=== PATIENT | male | born 1945 | race Caucasian/White ===

== ENCOUNTER 2017-05-06 13:19 | Emergency (ER) | payer OTHER ==
[~2017-05-06] VITALS: Ht 185.4 cm; Wt 153.0 kg
[~2017-05-06 13:19] MED LIST: BUPROPION HCL100 M1 PO; ESCITALOPRAM OX10 MG PO; FUROSEMIDE40 MG PO; HUMALOG100 UNIT/1 SC; IRON325 M1 PO; JANTOVEN10 MG PO; JANTOVEN2 MG PO; JANTOVEN6 MG PO; LANTUS 10100 UNITS/ SC; METFORMIN HCL1000 MG PO; METOLAZONE2.5 MG PO; METOPROLOL TART25 MG PO; NOVOLOG 10100 UNITS/ SC; QUINAPRIL HCL5 MG PO; SIMVASTATIN20 MG PO; TAMSULOSIN HCL0.4 MG PO
[2017-05-06 14:08] LABS: HEMATOCRIT 51.7 % (38.0-50.0); MCH 30.4 PG (29.0-34.0); MCHC 32.9 G/DL (30.0-36.0); MCV 92.3 FL (86-99); MEAN PLAT.VOLUME 10.1 uM^3 (9.0-12.4); PLATELET COUNT 185 K/uL (156-360); RBC DIS.WIDTH-CV 14.7 % (11.8-14.6); RBC DIS.WIDTH-SD 49.9 % (39-53); WHITE BLOOD COUNT 7.8 K/uL (4.1-10.2)
[2017-05-06 14:19] LABS: CHLORIDE 108 mEq/L (99-109); POTASSIUM 4.8 mEq/L (3.7-5.4); SODIUM 141 mEq/L (136-147)
[2017-05-06 14:21] LABS: GLUCOSE 124 mg/dL (70-99)
[2017-05-06 14:22] LABS: ANION GAP 11 MEQ/L (2-14)
[2017-05-06 14:25] LABS: GFR ESTIMATE (CALCULATED) > 59 mL/min/
[2017-05-06 14:26] LABS: UREA NITROGEN (BUN) 24 mg/dL (9-23)
[2017-05-06 14:48] LABS: ALKALINE PHOSPHATASE 126 IU/L (3-129)
[2017-05-06 14:51] LABS: DIRECT BILIRUBIN 0.4 mg/dL (0.0-0.3)
[2017-05-06 15:12] LABS: ADD MIUA? YES; BILIRUBIN NEGATIVE; BLOOD SMALL; COLOR YELLOW ((YELLOW)); GLUCOSE (STRIP) NEGATIVE; KETONES NEGATIVE; LEUKOCYTES NEGATIVE; NITRITE NEGATIVE; PROTEIN (STRIP) NEGATIVE; SPECIFIC GRAVITY 1.012 (1.000-1.030); UROBILINOGEN 0.2 MG/DL (0.2-1.0)
[2017-05-06 15:17] LABS: BACTERIA RARE /HPF; EPITHELIAL CELLS RARE /HPF; MUCUS TRACE /LPF; UCUL ADDED? NO; WHITE BLOOD CELLS 0-5 /HPF (0-5)
[2017-05-06 18:19] VITALS: BP 128/98
== END 2017-05-06 18:20 | disposition home or self-care (01) ==
LOC: EME 13:19
DX: R19.7 Diarrhea, unspecified (principal); K57.30 Diverticulosis of large intestine without perforation or abscess without bleeding; I10 Essential (primary) hypertension; E78.5 Hyperlipidemia, unspecified; F32.9 Major depressive disorder, single episode, unspecified; E11.9 Type 2 diabetes mellitus without complications; Z79.4 Long term (current) use of insulin; Z88.8 Allergy status to other drugs, medicaments and biological substances
CPT/HCPCS: 74177; 80048; 80076; 81003; 85027; 87177; 87493; 87506; 99281; 99283; J7030

== ENCOUNTER 2017-10-28 17:16 | Inpatient (IN) | payer OTHER ==
[~2017-10-28] VITALS: Ht 188 cm; Wt 157.3 kg
[2017-10-28 17:53] LABS: HEMATOCRIT 44.9 % (38.0-50.0); HEMOGLOBIN 14.8 G/DL (12.5-16.6); MCH 31.7 PG (29.0-34.0); MCV 96.1 FL (86-99); PLATELET COUNT 162 K/uL (156-360); RBC DIS.WIDTH-CV 15.2 % (11.8-14.6); RBC DIS.WIDTH-SD 53.5 % (39-53); RED BLOOD COUNT 4.67 M/uL (4.00-5.50)
[2017-10-28 18:05] LABS: CHLORIDE 107 mEq/L (99-109); POTASSIUM 5.1 mEq/L (3.7-5.4); SODIUM 138 mEq/L (136-147)
[2017-10-28 18:07] LABS: GLUCOSE 208 mg/dL (70-99)
[2017-10-28 18:10] LABS: CREATININE 1.2 mg/dL (0.6-1.3); GFR ESTIMATE (CALCULATED) > 59 mL/min/ (58.99-99999)
[2017-10-28 18:11] LABS: UREA NITROGEN (BUN) 22 mg/dL (9-23)
[2017-10-28 18:16] LABS: TROP-I INTERPRETATION NEGATIVE; TROPONIN-I 0.03 ng/mL (0.0-0.30)
[2017-10-28] MEDS ORDERED: LEXAPRO10 MG PO (20:57)
[2017-10-28] MEDS ORDERED: ELIQUIS5 MG PO (20:57)
[2017-10-28] MEDS ORDERED: NOVOLIN,HU100 UNITS/ SC (20:57)
[2017-10-28] MEDS ORDERED: WELLBUTRIN XL300 MG PO (20:59)
[2017-10-28] MEDS ORDERED: LOPRESSOR25 MG PO (20:59)
[2017-10-28] MEDS ORDERED: ZOCOR20 MG PO (20:59)
[2017-10-28] MEDS ORDERED: FUROSEMIDE20 MG PO (20:59)
[2017-10-28] MEDS ORDERED: OTHER MEDS (21:00)
[2017-10-29 04:40] VITALS: BP 136/74
[2017-10-29 06:08] LABS: HEMATOCRIT 45.2 % (38.0-50.0); HEMOGLOBIN 14.4 G/DL (12.5-16.6); MCH 30.4 PG (29.0-34.0); MCHC 31.9 G/DL (30.0-36.0); MCV 95.6 FL (86-99); PLATELET COUNT 171 K/uL (156-360); RBC DIS.WIDTH-CV 14.8 % (11.8-14.6); RBC DIS.WIDTH-SD 52.3 % (39-53); RED BLOOD COUNT 4.73 M/uL (4.00-5.50); WHITE BLOOD COUNT 9.2 K/uL (4.1-10.2)
[2017-10-29 06:38] LABS: CHLORIDE 105 MEQ/L (99-109); CREATININE 1.2 MG/DL (0.6-1.3); GFR ESTIMATE (CALCULATED) > 59 mL/min/ (58.99-99999); GLUCOSE 237 mg/dL (70-99); POTASSIUM 5.2 MEQ/L (3.7-5.4); SODIUM 136 MEQ/L (136-147); UREA NITROGEN (BUN) 23 mg/dL (9-23)
[2017-10-29 07:53] VITALS: BP 133/65
[2017-10-29 11:56] VITALS: BP 145/70
[2017-10-29 17:08] VITALS: BP 133/63
[2017-10-29 20:00] VITALS: BP 160/76
[2017-10-30] VITALS: BP 122/63
[2017-10-30 04:00] VITALS: BP 116/61
[2017-10-30 06:25] LABS: HEMATOCRIT 45.2 % (38.0-50.0); HEMOGLOBIN 14.6 G/DL (12.5-16.6); MCH 30.7 PG (29.0-34.0); MCHC 32.3 G/DL (30.0-36.0); MCV 95.2 FL (86-99); PLATELET COUNT 194 K/uL (156-360); RBC DIS.WIDTH-CV 15.1 % (11.8-14.6); RBC DIS.WIDTH-SD 53.2 % (39-53); RED BLOOD COUNT 4.75 M/uL (4.00-5.50); WHITE BLOOD COUNT 12.7 K/uL (4.1-10.2)
[2017-10-30 06:57] LABS: CHLORIDE 105 MEQ/L (99-109); CREATININE 1.1 MG/DL (0.6-1.3); GFR ESTIMATE (CALCULATED) > 59 mL/min/ (58.99-99999); GLUCOSE 48 mg/dL (70-99); POTASSIUM 4.4 MEQ/L (3.7-5.4); SODIUM 140 MEQ/L (136-147); UREA NITROGEN (BUN) 25 mg/dL (9-23)
[2017-10-30 07:11] VITALS: BP 113/56
[2017-10-30 10:51] LABS: HEMOGLOBIN A1c (GLYCOHEMOGLOB) 9.2 % (Below 5.7)
[2017-10-30 16:33] VITALS: BP 126/71
[2017-10-30 16:49] LABS: BASE EXCESS 1.2 mEq/L (-3 to +3); BICARBONATE 25.1 mEq/L (22-26); CARBOXY HGB 2.5 % (0-5); METHEMOGLOBIN 1.6 % (0-1.5); PCO2 37 mm Hg (35-45); PO2 53 mm Hg (80-100); pH 7.44 (7.35-7.45)
[2017-10-30 16:54] LABS: COMMENTS - BLOOD GASES A+C+; DEVICE RA; SITE RR; TOTAL RESP RATE 20 resp/min
== END 2017-10-30 18:45 | disposition home or self-care (01) | DRG 189 ==
LOC: EME 17:16 → 5SOUTH 21:04 → EDOF 21:04 → ENRESERV 21:07 → EDOF 10-29 00:15 → 5SOUTH 10-29 00:19 → ENPENDDIS 10-30 16:21 → 5SOUTH 10-30 18:45
PROVIDERS: Emergency Medicine; Internal Medicine; Internal Medicine Pulmonary Disease; Physician Assistant Medical
DX: J96.01 Acute respiratory failure with hypoxia (principal); J44.1 Chronic obstructive pulmonary disease with (acute) exacerbation; E66.2 Morbid (severe) obesity with alveolar hypoventilation; Z68.41 Body mass index [BMI] 40.0-44.9, adult; E11.51 Type 2 diabetes mellitus with diabetic peripheral angiopathy without gangrene; I10 Essential (primary) hypertension; I27.20 Pulmonary hypertension, unspecified; I48.2 Chronic atrial fibrillation; I87.2 Venous insufficiency (chronic) (peripheral); L30.9 Dermatitis, unspecified; I87.8 Other specified disorders of veins; N13.9 Obstructive and reflux uropathy, unspecified; Z79.4 Long term (current) use of insulin; Z87.891 Personal history of nicotine dependence; Z90.79 Acquired absence of other genital organ(s); Z79.01 Long term (current) use of anticoagulants; Z80.3 Family history of malignant neoplasm of breast; Z81.8 Family history of other mental and behavioral disorders; Z82.49 Family history of ischemic heart disease and other diseases of the circulatory system; Z83.3 Family history of diabetes mellitus
CPT/HCPCS: 36600; 71046; 71275; 80048; 82803; 82948; 83036; 83880; 84484; 85027; 93005; 93306; 93925; 93970; 94640; 94640 76; 94799; 99202; 99281; 99285; J1815; J2920; J7512

== ENCOUNTER 2017-11-18 19:27 | Emergency (ER) | payer OTHER ==
[~2017-11-18] VITALS: Ht 180.3 cm; Wt 148.7 kg
[~2017-11-18 19:27] MED LIST changes: +ELIQUIS5 MG PO; +FUROSEMIDE20 MG PO; +LEXAPRO10 MG PO; +LOPRESSOR25 MG PO; +NOVOLIN,HU100 UNITS/ SC; +OTHER MEDS; +WELLBUTRIN XL300 MG PO; +ZOCOR20 MG PO
[2017-11-19 00:08] VITALS: BP 165/72
== END 2017-11-19 00:13 | disposition home or self-care (01) ==
LOC: EME → EDBD 19:27 → EME 19:27
DX: M54.5 Low back pain (principal); M54.6 Pain in thoracic spine; M41.9 Scoliosis, unspecified; Z91.81 History of falling; I48.91 Unspecified atrial fibrillation; Z79.01 Long term (current) use of anticoagulants; I10 Essential (primary) hypertension; E78.5 Hyperlipidemia, unspecified; E11.9 Type 2 diabetes mellitus without complications; Z79.4 Long term (current) use of insulin; F32.9 Major depressive disorder, single episode, unspecified; Z88.8 Allergy status to other drugs, medicaments and biological substances
CPT/HCPCS: 72070; 72100; 93005; 99281; 99285; J2405; J3010